=== PATIENT | male | born 1960 | race Caucasian/White ===

== ENCOUNTER 2017-05-08 19:17 | Emergency (ER) | payer BC ==
[~2017-05-08] VITALS: Ht 185.4 cm; Wt 111.4 kg
[~2017-05-08 19:17] MED LIST: ALPRAZOLAM 0.5MG; AMLODIPINE-ATO1 EAC1; AUGMENTIN875 MG PO; ESCITALOPRAM OX20 MG; NEXIUM40 MG; PERCOCET 5/31 TABLET PO
[2017-05-08 20:07] LABS: HEMATOCRIT 47.5 % (38.0-50.0); MCH 29.9 PG (29.0-34.0); MCHC 34.3 G/DL (30.0-36.0); MCV 87.2 FL (86-99); MEAN PLAT.VOLUME 9.7 uM^3 (9.0-12.4); PLATELET COUNT 262 K/uL (156-360); RBC DIS.WIDTH-CV 12.6 % (11.8-14.6); RED BLOOD COUNT 5.45 M/uL (4.00-5.50); WHITE BLOOD COUNT 14.5 K/uL (4.1-10.2)
[2017-05-08 20:15] LABS: CHLORIDE 99 mEq/L (99-109); POTASSIUM 4.2 mEq/L (3.7-5.4); SODIUM 133 mEq/L (136-147)
[2017-05-08 20:17] LABS: GLUCOSE 103 mg/dL (70-99)
[2017-05-08 20:18] LABS: ANION GAP 11 MEQ/L (2-14)
[2017-05-08 20:19] LABS: TOTAL BILIRUBIN 1.2 mg/dL (0.0-1.0)
[2017-05-08 20:21] LABS: ALKALINE PHOSPHATASE 103 IU/L (3-129); GFR ESTIMATE (CALCULATED) > 59 mL/min/
[2017-05-08 20:22] LABS: UREA NITROGEN (BUN) 14 mg/dL (9-23)
[2017-05-08 22:34] LABS: LIPASE 17 U/L (1.0-51.0)
[2017-05-08 23:28] LABS: ADD MIUA? YES; BILIRUBIN NEGATIVE; BLOOD SMALL; COLOR YELLOW ((YELLOW)); GLUCOSE (STRIP) NEGATIVE; KETONES 5; LEUKOCYTES NEGATIVE; NITRITE NEGATIVE; PROTEIN (STRIP) NEGATIVE; SPECIFIC GRAVITY 1.015 (1.000-1.030); UROBILINOGEN 0.2 MG/DL (0.2-1.0)
[2017-05-08 23:32] VITALS: BP 134/99
[2017-05-08 23:36] LABS: BACTERIA NONE SEEN /HPF; EPITHELIAL CELLS NONE SEEN /HPF; MUCUS TRACE /LPF; UCUL ADDED? NO; WHITE BLOOD CELLS 0-5 /HPF (0-5)
[2017-05-08] MEDS ORDERED: CIPRO500 MG PO (23:50)
[2017-05-08] MEDS ORDERED: FLAGYL500 MG PO (23:50)
[2017-05-08] MEDS ORDERED: ZOFRAN ODT4 MG PO (23:50)
== END 2017-05-08 23:53 | disposition home or self-care (01) ==
LOC: EME 19:17 → RME 19:17
DX: K57.92 Diverticulitis of intestine, part unspecified, without perforation or abscess without bleeding (principal); I10 Essential (primary) hypertension; K21.9 Gastro-esophageal reflux disease without esophagitis; F41.9 Anxiety disorder, unspecified; Z87.891 Personal history of nicotine dependence
CPT/HCPCS: 74177; 80053; 81003; 83690; 85027; 99281; 99285; J7030